=== PATIENT | female | born 1955 | race Caucasian/White ===

== ENCOUNTER → 2023-12-05 10:18 | Outpatient (REF) | payer BC, SELFPAY | LOC: HWRAD 10:18 | PROVIDERS: ATTENDING PHYSICIAN Internal Medicine Critical Care Medicine; FAMILY PHYSICIAN Family Medicine | DX: Z87.891 Personal history of nicotine dependence (principal); R91.8 Other nonspecific abnormal finding of lung field | CPT/HCPCS: 71250 ==

== ENCOUNTER → 2024-07-07 10:39 | Outpatient (REF) | payer BC, SELFPAY | LOC: HWRAD 10:39 | PROVIDERS: ATTENDING PHYSICIAN Internal Medicine Critical Care Medicine; FAMILY PHYSICIAN Family Medicine | DX: R91.8 Other nonspecific abnormal finding of lung field (principal) | CPT/HCPCS: 71250 ==

== ENCOUNTER → 2025-07-29 10:24 | Outpatient (REF) | payer BC, SELFPAY | LOC: HWRAD 10:24 | PROVIDERS: ATTENDING PHYSICIAN Internal Medicine Critical Care Medicine; FAMILY PHYSICIAN Family Medicine | DX: R91.8 Other nonspecific abnormal finding of lung field (principal); Z87.891 Personal history of nicotine dependence | CPT/HCPCS: 71250 ==